=== PATIENT | male | born 1980 ===

== ENCOUNTER 2023-12-16 20:08 | Emergency (ER) | payer OTHER ==
[2023-12-16] MEDS: Diazepam 5 MG Tab PO ONE (20:43)
[2023-12-16] MEDS: Ketorolac 30 MG/ML SDV IM ONE (20:45)
== END 2023-12-16 20:59 | disposition home or self-care (01) ==
LOC: MW.ED 20:08
DX: M25.512 Pain in left shoulder (principal); F17.210 Nicotine dependence, cigarettes, uncomplicated
CPT/HCPCS: 73030; 96372; 99283; A9270; J1885